=== PATIENT | male | born 1960 | race Hispanic/Latino ===

== ENCOUNTER 2017-10-03 00:02 | Inpatient (IN) | payer MEDICAID, OTHER ==
--- NOTE | 2017-10-03 00:28 | C.PDOC ---
History Of Present Illness 56 y/o M c no PMHx p/w chest pain x 2 hours. 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 Denies fever, cough, trauma, travel, leg swelling, nausea, vomiting. Time Seen by Provider: 10/03/17 00:25 Chief Complaint (Nursing): Chest Pain Past Medical History Vital Signs: Last Vital Signs Temp 98.5 F 10/03/17 00:13 Pulse 81 10/03/17 01:36 Resp 13 10/03/17 01:36 BP 107/69 10/03/17 01:36 Pulse Ox 97 10/03/17 01:36 - Medical History PMH: Gall Bladder Disease Surgical History: Cholecystectomy Family History: States: No Known Family Hx - Social History Hx Alcohol Use: No Hx Substance Use: No - Immunization History Hx Tetanus Toxoid Vaccination: Yes Hx Influenza Vaccination: Yes Hx Pneumococcal Vaccination: Yes Review Of Systems Except As Marked, All Systems Reviewed And Found Negative. Constitutional: Negative for: Fever Gastrointestinal: Negative for: Vomiting Physical Exam - Physical Exam Additional Physical Exam Comments: Gen: NAD Head: NC/AT Eyes: PERRL ENT: MMM Neck: Supple Chest: No tenderness CV: Borderline tachycardic Lungs: CTA b/l. Pulse oximetry 91% on room air Abd: Soft, NT Back: No CVA tenderness Extremities: No edema Skin: No rash. Diaphoretic. Neuro: Alert, no focal deficit ED Course And Treatment - Laboratory Results Result Diagrams: 10/03/17 00:29 10/03/17 00:29 O2 Sat by Pulse Oximetry: 92 Medical Decision Making Medical Decision Making: Differential includes MSK pain, PE, ACS. FINDINGS: Pulmonary arteries: Normal. No pulmonary emboli. Aorta: Normal. No aortic aneurysm. No aortic dissection. Lungs: Atelectasis or infiltrate in the bases. Paraseptal emphysema Pleural space: Normal. No pneumothorax. No pleural effusion. Heart: Coronary artery calcifications. Bones/joints: Unremarkable. No acute fracture. Soft tissues: Unremarkable. Lymph nodes: Unremarkable. No enlarged lymph nodes. Liver: Calcified granulomas in the liver. Gallbladder and bile ducts: Cholecystectomy. Kidneys and ureters: Low-density structures in the left kidney are not further characterized. Troponin negative at 0.04. Will trend. Antibiotics administered. Disposition - Disposition Disposition: HOSPITALIZED Disposition Time: 02:38 Condition: FAIR Forms: [employer] (Lao) - POA Core Measure Indicators: Pneumonia - Clinical Impression Clinical Impression: Chest pain, Pneumonia
[2017-10-03 00:34] LABS: BASO # 0.1 K/uL (0.0-0.2); BASO % 0.7 % (0.0-2.0); EOS # 0.1 K/uL (0.0-0.7); EOS % 1.1 % (0.0-4.0); LYMPH # 1.7 K/uL (1.0-4.3); LYMPH % 13.8 % (20.0-40.0); MEAN CELL VOLUME 90.3 fL (80.0-94.0); MEAN CORPUSCULAR HEMOGLOBIN 30.9 pg (27.0-31.0); MEAN CORPUSCULAR HGB CONC 34.3 g/dL (33.0-37.0); MEAN PLATELET VOLUME 8.6 fL (7.2-11.7); MONO # 0.7 K/uL (0.0-0.8); MONO % 5.7 % (0.0-10.0); NEUT # 9.6 K/uL (1.8-7.0); NEUT % 78.7 % (50.0-75.0); NRBC % 0.1 % (0.0-2.0); RBC 5.49 Mil/uL (4.40-5.90); RED CELL DISTRIBUTION WIDTH 13.7 % (11.5-14.5); WHITE BLOOD COUNT 12.2 K/uL (4.8-10.8)
[2017-10-03 00:41] LABS: INR 1.1; PROTHROMBIN TIME 11.9 SECONDS (9.7-12.2)
[2017-10-03 01:02] LABS: ALB/GLOB RATIO 1.4 (1.0-2.1); ALBUMIN 4.7 g/dL (3.5-5.0)
[2017-10-03] MEDS ORDERED: Sodium Chloride 0.9% 1,000 ML IV STA (01:13)
[2017-10-03] MEDS ORDERED: Iodixanol 320 MG/ML 100 ML BOTTLE IV ONE (01:13)
[2017-10-03] MEDS ORDERED: Sodium Chloride 0.9% 1,000 ML ONE (01:16)
[2017-10-03 01:27] LABS: B-TYPE NATRIURETIC PEPTIDE 66.6 pg/mL (0-900); CK-MB 1.24 ng/mL (0.0-3.38); TROPONIN I 0.044 ng/mL (0.00-0.120)
[2017-10-03] MEDS ORDERED: Azithromycin 500 MG in Sodium Chloride 0.9% 250 ML IVPB STA (02:55)
--- NOTE | 2017-10-03 08:13 | CP.PCM.HP ---
Past Patient History - Past Social History Smoking Status: Light Smoker < 10 Cigarettes Daily - MUSCULOSKELETAL/RHEUMATOLOGICAL Hx Falls: No - GASTROINTESTINAL Hx Gall Bladder Disease: Yes (GB SURGERY ) - PSYCHIATRIC Hx Substance Use: No - SURGICAL HISTORY Hx Cholecystectomy: Yes - ANESTHESIA Hx Anesthesia: Yes Hx Anesthesia Reactions: No Meds Allergies/Adverse Reactions: Allergies Allergy/AdvReac Type Severity Reaction Status Date / Time No Known Allergies Allergy Verified 10/03/17 00:17 Results - Vital Signs Recent Vital Signs: Last Vital Signs Temp 97.4 F L 10/03/17 07:15 Pulse 65 10/03/17 07:15 Resp 20 10/03/17 07:15 BP 111/56 L 10/03/17 07:15 Pulse Ox 97 10/03/17 07:15 - Labs Result Diagrams: 10/03/17 00:29 10/03/17 00:29 Labs: Laboratory Results - last 24 hr 10/03/17 10/03/17 10/03/17 00:25 00:29 00:29 WBC 12.2 H RBC 5.49 Hgb 17.0 Hct 49.6 MCV 90.3 MCH 30.9 MCHC 34.3 RDW 13.7 Plt Count 248 MPV 8.6 Neut % (Auto) 78.7 H Lymph % (Auto) 13.8 L [place] % (Auto) 5.7 Eos % (Auto) 1.1 Baso % (Auto) 0.7 Neut # (Auto) 9.6 H Lymph # (Auto) 1.7 [place] # (Auto) 0.7 Eos # (Auto) 0.1 Baso # (Auto) 0.1 PT 11.9 INR 1.1 APTT 33 D-Dimer, Quantitative Sodium 147 Potassium 3.6 Chloride 108 H Carbon Dioxide 23 Anion Gap 19 BUN 17 Creatinine 1.7 H Est GFR ( Amer) 50 Est GFR (Non-Af Amer) 42 Random Glucose 147 H Calcium 10.0 Total Bilirubin 0.8 AST 21 ALT 26 Alkaline Phosphatase 95 Total Creatine Kinase 118 CK-MB (Mass) 1.24 Troponin I 0.0440 NT-Pro-B Natriuret Pep 66.6 Total Protein 8.0 Albumin 4.7 Globulin 3.3 Albumin/Globulin Ratio 1.4 10/03/17 01:27 WBC RBC Hgb Hct MCV MCH MCHC RDW Plt Count MPV Neut % (Auto) Lymph % (Auto) [place] % (Auto) Eos % (Auto) Baso % (Auto) Neut # (Auto) Lymph # (Auto) [place] # (Auto) Eos # (Auto) Baso # (Auto) PT INR APTT D-Dimer, Quantitative < 200 Sodium Potassium Chloride Carbon Dioxide Anion Gap BUN Creatinine Est GFR ( Amer) Est GFR (Non-Af Amer) Random Glucose Calcium Total Bilirubin AST ALT Alkaline Phosphatase Total Creatine Kinase CK-MB (Mass) Troponin I NT-Pro-B Natriuret Pep Total Protein Albumin Globulin Albumin/Globulin Ratio Assessment & Plan - Assessment and Plan (Free Text) Plan: yohan [email or web address] cardio pulm rocephin zithromax asp as ordred
--- NOTE | 2017-10-03 08:52 | CP.PCM.CON ---
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 NO WHEEZE., STILL SMOKING. NO N/V. NO DIAPHORESIS. QUIT COCAINE YRS AGO. ON NO MEDS. Review of Systems - Review of Systems All systems: reviewed and no additional remarkable complaints except - Constitutional Constitutional: absent: Chills, Excessive Sweating - EENT Eyes: absent: Change in Vision Ears: absent: Dizziness Nose/Mouth/Throat: absent: Nasal Congestion - Cardiovascular Cardiovascular: Chest Pain. absent: Leg Edema - Respiratory Respiratory: Cough, Dyspnea. absent: Excessive Mucous Production - Gastrointestinal Gastrointestinal: Heartburn. absent: Nausea, Vomiting - Genitourinary Genitourinary: absent: Difficulty Urinating - Musculoskeletal Musculoskeletal: absent: Arthralgias - Integumentary Integumentary: absent: Rash - Neurological Neurological: absent: Confusion, Focal Weakness - Psychiatric Psychiatric: absent: Anxiety - Endocrine Endocrine: absent: Palpitations - Hematologic/Lymphatic Hematologic: absent: Easy Bruising Past Patient History - Infectious Disease Hx of Infectious Diseases: None - Past Medical History & Family History Past Medical History?: No Past Family History: Reviewed and not pertinent - Past Social History Smoking Status: Light Smoker < 10 Cigarettes Daily Chewing Tobacco Use: No Cigar Use: No Alcohol: None Drugs: Cocaine - CARDIAC Hx Cardiac Disorders: No - PULMONARY Hx Respiratory Disorders: No - NEUROLOGICAL Hx Neurological Disorder: No - HEENT Hx HEENT Problems: No - RENAL Hx Chronic Kidney Disease: No - ENDOCRINE/METABOLIC Hx Endocrine Disorders: No - HEMATOLOGICAL/ONCOLOGICAL Hx Blood Disorders: No - INTEGUMENTARY Hx Dermatological Problems: No - MUSCULOSKELETAL/RHEUMATOLOGICAL Hx Musculoskeletal Disorders: No Hx Falls: No - GASTROINTESTINAL Hx Gall Bladder Disease: Yes (GB SURGERY ) Hx Gastritis: Yes - GENITOURINARY/GYNECOLOGICAL Hx Genitourinary Disorders: No - PSYCHIATRIC Hx Psychophysiologic Disorder: No Hx Substance Use: No - SURGICAL HISTORY Hx Cholecystectomy: Yes - ANESTHESIA Hx Anesthesia: Yes Hx Anesthesia Reactions: No Meds Allergies/Adverse Reactions: Allergies Allergy/AdvReac Type Severity Reaction Status Date / Time No Known Allergies Allergy Verified 10/03/17 00:17 - Medications Medications: Current Medications Albuterol/Ipratropium (Duoneb 3 Mg/0.5 Mg (3 Ml) Ud) 3 ml INH RQ6 [facility] Aspirin (Aspirin) 325 mg PO DAILY [facility] Enoxaparin Sodium (Lovenox) 40 mg SC DAILY [facility] Ceftriaxone Sodium 1 gm/ (Sodium Chloride) 100 mls @ 100 mls/hr IVPB DAILY [facility] PRN Reason: Protocol Azithromycin 500 mg/ Sodium (Chloride) 250 mls @ 250 mls/hr IVPB DAILY [facility] PRN Reason: Protocol Ceftriaxone Sodium 1 gm/ (Sodium Chloride) 100 mls @ 100 mls/hr IVPB DAILY [facility] PRN Reason: Protocol Pantoprazole Sodium (Protonix Ec Tab) 40 mg PO DAILY [facility] Physical Exam - Constitutional Appears: No Acute Distress - Head Exam Head Exam: ATRAUMATIC, NORMOCEPHALIC - Eye Exam Eye Exam: EOMI, Normal appearance - ENT Exam ENT Exam: Mucous Membranes Moist - Respiratory Exam Respiratory Exam: Decreased Breath Sounds. absent: Accessory Muscle Use, Chest Wall Tenderness, Wheezes - Cardiovascular Exam Cardiovascular Exam: RRR, +S1, +S2 - GI/Abdominal Exam GI & Abdominal Exam: Soft. absent: Tenderness - Rectal Exam Rectal Exam: Deferred - Extremities Exam Extremities exam: Negative for: calf tenderness, pedal edema - Back Exam Back exam: absent: CVA tenderness (L), CVA tenderness (R) - Neurological Exam Neurological exam: Alert, CN II-XII Intact, Oriented x3 - Psychiatric Exam Psychiatric exam: Normal Mood Results - Vital Signs Recent Vital Signs: Last Vital Signs Temp 97.4 F L 10/03/17 07:15 Pulse 65 10/03/17 07:15 Resp 20 10/03/17 07:15 BP 111/56 L 10/03/17 07:15 Pulse Ox 97 10/03/17 07:15 - Labs Result Diagrams: 10/03/17 00:29 10/03/17 00:29 Labs: Laboratory Results - last 24 hr 10/03/17 10/03/17 10/03/17 00:25 00:29 00:29 WBC 12.2 H RBC 5.49 Hgb 17.0 Hct 49.6 MCV 90.3 MCH 30.9 MCHC 34.3 RDW 13.7 Plt Count 248 MPV 8.6 Neut % (Auto) 78.7 H Lymph % (Auto) 13.8 L [place] % (Auto) 5.7 Eos % (Auto) 1.1 Baso % (Auto) 0.7 Neut # (Auto) 9.6 H Lymph # (Auto) 1.7 [place] # (Auto) 0.7 Eos # (Auto) 0.1 Baso # (Auto) 0.1 PT 11.9 INR 1.1 APTT 33 D-Dimer, Quantitative Sodium 147 Potassium 3.6 Chloride 108 H Carbon Dioxide 23 Anion Gap 19 BUN 17 Creatinine 1.7 H Est GFR ( Amer) 50 Est GFR (Non-Af Amer) 42 Random Glucose 147 H Calcium 10.0 Total Bilirubin 0.8 AST 21 ALT 26 Alkaline Phosphatase 95 Total Creatine Kinase 118 CK-MB (Mass) 1.24 Troponin I 0.0440 NT-Pro-B Natriuret Pep 66.6 Total Protein 8.0 Albumin 4.7 Globulin 3.3 Albumin/Globulin Ratio 1.4 10/03/17 01:27 WBC RBC Hgb Hct MCV MCH MCHC RDW Plt Count MPV Neut % (Auto) Lymph % (Auto) [place] % (Auto) Eos % (Auto) Baso % (Auto) Neut # (Auto) Lymph # (Auto) [place] # (Auto) Eos # (Auto) Baso # (Auto) PT INR APTT D-Dimer, Quantitative < 200 Sodium Potassium Chloride Carbon Dioxide Anion Gap BUN Creatinine Est GFR ( Amer) Est GFR (Non-Af Amer) Random Glucose Calcium Total Bilirubin AST ALT Alkaline Phosphatase Total Creatine Kinase CK-MB (Mass) Troponin I NT-Pro-B Natriuret Pep Total Protein Albumin Globulin Albumin/Globulin Ratio Assessment & Plan (1) Acute kidney injury Status: Acute (2) Smoking Status: Acute (3) Chest pain Status: Acute (4) Pneumonia Status: Acute - Assessment and Plan (Free Text) Assessment: 56 YO MALE WITH A HX SMOKING, ADM WITH ?UNSTABLE ANGINA R/O ACS WITH DYSPNEA, ? COPD EXAC AND PNA. CONT EMPIRIC AB., NEB BD., PULM TOILET., MONITOR O2 SAT. CTA REVIEWED, NEG PE +BIBASILAR INFILT. MONITOR CARD ENZ, FOR ECHO. CARDIO EVAL. SMOKING CESSATION. GI/DVT PROPHYLAXIS. DISCUSSED WITH STAFF.
--- NOTE | 2017-10-03 09:14 | CT ---
Date of service: 10/03/2017 PROCEDURE: CT Chest with contrast (Pulmonary Angiogram) HISTORY: dyspnea, chest pain COMPARISON: None available. TECHNIQUE: Axial computed tomography images were obtained of the chest in the pulmonary arterial phase of enhancement. Coronal and sagittal reformatted images were created and reviewed. Radiation dose: Total exam DLP = 621 mGy-cm. This CT exam was performed using one or more of the following dose reduction techniques: Automated exposure control, adjustment of the mA and/or kV according to patient size, and/or use of iterative reconstruction technique. FINDINGS: PULMONARY ARTERIES: No evidence for central pulmonary embolism. More limited evaluation for segmental and subsegmental emboli given motion artifact and suboptimal contrast timing bolus. AORTA: No acute findings. No thoracic aortic aneurysm. LUNGS: Atelectasis and or infiltrate at the lung bases. Paraseptal emphysema. 3 millimeter subpleural nodular density along the fissure on series 4, image 62. PLEURAL SPACES: Unremarkable. No effusion or pneumothorax. HEART: Coronary calcifications. LYMPH NODES: 1.2 centimeter right hilar node. BONES, CHEST WALL: Unremarkable. No fracture or destructive lesion OTHER FINDINGS: Calcified granulomas and/or foci in the liver. Cholecystectomy. Low-attenuation lesion in the left kidney measuring 3.5 centimeters demonstrating a Hounsfield unit attenuation of 6 suggestive for a cyst. Additional smaller hypodensities, too small to adequately characterize. IMPRESSION: No evidence for central pulmonary embolism. More limited evaluation for segmental and subsegmental emboli given motion artifact and suboptimal contrast timing bolus. Atelectasis and or infiltrate at the lung bases. Paraseptal emphysema. 3 millimeter subpleural nodular density along the fissure on series 4, image 62. Clinical correlation. Three month interval followup may be helpful if clinically indicated. Additional findings as above. These findings were preliminarily reported at 2:37 a.m. on 10/03/[address] Jey Ly from [employer].
[2017-10-03] MEDS: Pantoprazole 40 mg EC Tab PO SCH (09:17)
[2017-10-03] MEDS: Enoxaparin 40 mg Syringe SC SCH (09:18)
[2017-10-03] MEDS: Azithromycin 500 MG in Sodium Chloride 0.9% 250 ML IVPB SCH (10:31)
[2017-10-03 13:24] LABS: CK-MB 1.59 ng/mL (0.0-3.38); TROPONIN I 0.083 ng/mL (0.00-0.120)
[2017-10-03 13:33] LABS: BARBITURATES, UR NEGATIVE (NEGATIVE); BENZODIAZEPINES, UR NEGATIVE (NEGATIVE); OPIATES, UR NEGATIVE (NEGATIVE); PHENCYCLIDINE, UR NEGATIVE (NEGATIVE)
--- NOTE | 2017-10-03 13:53 | CP.PCM.PN ---
Subjective - Date & Time of Evaluation Date of Evaluation: 10/03/17 Time of Evaluation: 07:00 - Subjective Subjective: PGY2- Progress Note for Dr. Braden Patient with no significant PMHx presented to the ER for midsternal and left sided chest pain which he rated 10/10. Pain lasted for about 30 minutes at that level and then decreased. Patient today says the pain is 5/10. Pain does not radiate. Patient does admit to some shortness of breath. Patient said he felt palpitations yesterday, but not today. Patient denies headache, abdominal pain, nausea, vomiting, constipation, or diarrhea. 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, denies any alcohol lives in intermediate for 1 month, homeless for years Objective - Vital Signs/Intake and Output Vital Signs (last 24 hours): Temp Pulse Resp BP Pulse Ox 97.4 F L 62 20 111/56 L 97 10/03/17 07:15 10/03/17 08:50 10/03/17 07:15 10/03/17 07:15 10/03/17 07:15 Intake and Output: 10/03/17 10/03/17 06:59 18:59 Intake Total 300 Output Total 300 Balance 0 - Medications Medications: Current Medications Albuterol/Ipratropium (Duoneb 3 Mg/0.5 Mg (3 Ml) Ud) 3 ml INH RQ6 [facility] Aspirin (Aspirin) 325 mg PO DAILY [facility] Last Admin: 10/03/17 09:17 Dose: 325 mg Enoxaparin Sodium (Lovenox) 40 mg SC DAILY [facility] Last Admin: 10/03/17 09:18 Dose: 40 mg Ceftriaxone Sodium 1 gm/ (Sodium Chloride) 100 mls @ 100 mls/hr IVPB DAILY [facility] PRN Reason: Protocol Last Admin: 10/03/17 09:17 Dose: 100 mls/hr Azithromycin 500 mg/ Sodium (Chloride) 250 mls @ 250 mls/hr IVPB DAILY [facility] PRN Reason: Protocol Last Admin: 10/03/17 10:31 Dose: 250 mls/hr Pantoprazole Sodium (Protonix Ec Tab) 40 mg PO DAILY [facility] Last Admin: 10/03/17 09:17 Dose: 40 mg - Labs Labs: 10/03/17 00:29 10/03/17 00:29 PT 11.9 SECONDS (9.7-12.2) 10/03/17 00:25 INR 1.1 10/03/17 00:25 APTT 33 SECONDS (21-34) 10/03/17 00:25 - Constitutional Appears: Non-toxic, No Acute Distress, Unkempt - Head Exam Head Exam: ATRAUMATIC, NORMAL INSPECTION, NORMOCEPHALIC - Eye Exam Eye Exam: EOMI, Normal appearance - ENT Exam ENT Exam: Mucous Membranes Moist - Respiratory Exam Respiratory Exam: Rales, NORMAL BREATHING PATTERN - Cardiovascular Exam Cardiovascular Exam: REGULAR RHYTHM, RRR, +S1, +S2 - GI/Abdominal Exam GI & Abdominal Exam: Soft, Normal Bowel Sounds. absent: Tenderness - Extremities Exam Extremities Exam: Normal Inspection. absent: Pedal Edema, Tenderness - Back Exam Back Exam: NORMAL INSPECTION - Neurological Exam Neurological Exam: Alert, Awake, Oriented x3 - Psychiatric Exam Psychiatric exam: Normal Affect, Normal Mood - Skin Skin Exam: Intact, Normal Color, Warm Assessment and Plan - Assessment and Plan (Free Text) Assessment: Chest Pain r/o ACS admit to tele Trop I .0440, .0830 f/u 3rd troponin EKG: no ST or T wave changes cardiology consult, Dr. Vázquez, help appreciated heart healthy diet CTA: no evidence of PE. more limited eval for segmental and subsegmental emboli given motion artifact and suboptimal contrast timing bolus. Atelectasis and or infiltrate at the lung bases. Paraseptal emphysema. 3mm subpleural nodular density along the fissure. Clinical correlation. Three month interval followup may be helpful if clinically indicated. Pneumonia as seen on CT pulm consulted, Dr. Roberts, help appreciated WBC: 12.2 Meds: Azithromycin 500mg ivpb daily Ceftriaxone 1 gm ivpb daily Duonebs 3ml INH q6h Lung Nodule as seen on CT will need follow up CT as an outpatient pulm consulted, Dr. Roberts, help appreciated Prophylaxis Protonix 40mg po daily Lovenox 40mg sc daily, SCDs Discussed with Dr. Braden
--- NOTE | 2017-10-03 19:23 | CP.PCM.PN ---
Subjective - Date & Time of Evaluation Date of Evaluation: 10/03/17 Time of Evaluation: 11:00 - Subjective Subjective: clinically same Objective - Vital Signs/Intake and Output Vital Signs (last 24 hours): Temp Pulse Resp BP Pulse Ox 97.7 F 58 L 20 96/61 L 94 L 10/03/17 15:00 10/03/17 15:59 10/03/17 15:00 10/03/17 15:00 10/03/17 15:00 Intake and Output: 10/03/17 10/04/17 18:59 06:59 Intake Total 300 Output Total 300 Balance 0 - Medications Medications: Current Medications Albuterol/Ipratropium (Duoneb 3 Mg/0.5 Mg (3 Ml) Ud) 3 ml INH RQ6 [facility] Aspirin (Aspirin) 325 mg PO DAILY [facility] Last Admin: 10/03/17 09:17 Dose: 325 mg Enoxaparin Sodium (Lovenox) 40 mg SC DAILY [facility] Last Admin: 10/03/17 09:18 Dose: 40 mg Ceftriaxone Sodium 1 gm/ (Sodium Chloride) 100 mls @ 100 mls/hr IVPB DAILY [facility] PRN Reason: Protocol Last Admin: 10/03/17 09:17 Dose: 100 mls/hr Azithromycin 500 mg/ Sodium (Chloride) 250 mls @ 250 mls/hr IVPB DAILY [facility] PRN Reason: Protocol Last Admin: 10/03/17 10:31 Dose: 250 mls/hr Pantoprazole Sodium (Protonix Ec Tab) 40 mg PO DAILY [facility] Last Admin: 10/03/17 09:17 Dose: 40 mg - Labs Labs: 10/03/17 00:29 10/03/17 00:29 PT 11.9 SECONDS (9.7-12.2) 10/03/17 00:25 INR 1.1 10/03/17 00:25 APTT 33 SECONDS (21-34) 10/03/17 00:25 - Constitutional Appears: Well - Head Exam Head Exam: ATRAUMATIC, NORMAL INSPECTION, NORMOCEPHALIC - Eye Exam Eye Exam: EOMI, Normal appearance, PERRL Pupil Exam: NORMAL ACCOMODATION, PERRL - ENT Exam ENT Exam: Mucous Membranes Moist, Normal Exam - Neck Exam Neck Exam: Full ROM, Normal Inspection. absent: Lymphadenopathy - Respiratory Exam Respiratory Exam: Decreased Breath Sounds - Cardiovascular Exam Cardiovascular Exam: REGULAR RHYTHM, +S1, +S2 - GI/Abdominal Exam GI & Abdominal Exam: Soft, Diminished Bowel Sounds - Rectal Exam Rectal Exam: Deferred
[2017-10-03] MEDS: Albuterol-Ipratrop 3 mg / 0.5 (3 ml) UD INH SCH (20:37)
[2017-10-03 21:07] LABS: CK-MB 1.38 ng/mL (0.0-3.38); TROPONIN I 0.036 ng/mL (0.00-0.120)
[2017-10-04] MEDS: Albuterol-Ipratrop 3 mg / 0.5 (3 ml) UD INH SCH ×4 (03:04→20:30)
[2017-10-04 07:39] LABS: ALB/GLOB RATIO 1.4 (1.0-2.1); ALBUMIN 3.5 g/dL (3.5-5.0); ALT/SGPT 21 U/L (21-72); AST/SGOT 15 U/L (17-59); BASO % 0.6 % (0.0-2.0); BLOOD UREA NITROGEN 16 mg/dL (9-20); CALCIUM 8.3 mg/dl (8.6-10.4); EOS # 0.2 K/uL (0.0-0.7); EOS % 3.1 % (0.0-4.0); GFR AFRICAN-AMERICAN > 60; GFR NON-AFRICAN AMERICAN > 60; LYMPH # 2.5 K/uL (1.0-4.3); LYMPH % 37.3 % (20.0-40.0); MEAN CELL VOLUME 90.6 fL (80.0-94.0); MEAN CORPUSCULAR HEMOGLOBIN 30.7 pg (27.0-31.0); MEAN CORPUSCULAR HGB CONC 33.9 g/dL (33.0-37.0); MEAN PLATELET VOLUME 8.5 fL (7.2-11.7); MONO # 0.5 K/uL (0.0-0.8); MONO % 7.5 % (0.0-10.0); NEUT # 3.4 K/uL (1.8-7.0); NEUT % 51.5 % (50.0-75.0); NRBC % 0.1 % (0.0-2.0); RBC 4.69 Mil/uL (4.40-5.90); RED CELL DISTRIBUTION WIDTH 13.6 % (11.5-14.5); WHITE BLOOD COUNT 6.7 K/uL (4.8-10.8)
[2017-10-04 07:41] LABS: HEMOGLOBIN 14.4 g/dL (12.0-18.0)
[2017-10-04] MEDS: Enoxaparin 40 mg Syringe SC SCH (09:24)
[2017-10-04] MEDS: Pantoprazole 40 mg EC Tab PO SCH (09:24)
--- NOTE | 2017-10-04 10:07 | CP.PCM.PN ---
Subjective - Date & Time of Evaluation Date of Evaluation: 10/04/17 Time of Evaluation: 10:05 - Subjective Subjective: PT ALERT, +COUGH, +YELLOW SPUTUM., STILL INTERMITTENT ANT. CP AT REST. ROS; OTHERWISE NEG. Objective - Vital Signs/Intake and Output Vital Signs (last 24 hours): Temp Pulse Resp BP Pulse Ox 97.7 F 55 L 18 115/73 100 10/04/17 07:20 10/04/17 07:20 10/04/17 07:20 10/04/17 07:20 10/04/17 07:20 Intake and Output: 10/04/17 10/04/17 06:59 18:59 Intake Total 200 Output Total 220 Balance -20 - Medications Medications: Current Medications Albuterol/Ipratropium (Duoneb 3 Mg/0.5 Mg (3 Ml) Ud) 3 ml INH RQ6 [facility] Last Admin: 10/04/17 07:35 Dose: 3 ml Aspirin (Aspirin) 325 mg PO DAILY [facility] Last Admin: 10/04/17 09:24 Dose: 325 mg Enoxaparin Sodium (Lovenox) 40 mg SC DAILY [facility] Last Admin: 10/04/17 09:24 Dose: 40 mg Ceftriaxone Sodium 1 gm/ (Sodium Chloride) 100 mls @ 100 mls/hr IVPB DAILY [facility] PRN Reason: Protocol Last Admin: 10/04/17 09:23 Dose: 100 mls/hr Azithromycin 500 mg/ Sodium (Chloride) 250 mls @ 250 mls/hr IVPB DAILY [facility] PRN Reason: Protocol Last Admin: 10/03/17 10:31 Dose: 250 mls/hr Pantoprazole Sodium (Protonix Ec Tab) 40 mg PO DAILY [facility] Last Admin: 10/04/17 09:24 Dose: 40 mg - Labs Labs: 10/04/17 07:18 10/04/17 07:18 PT 11.9 SECONDS (9.7-12.2) 10/03/17 00:25 INR 1.1 10/03/17 00:25 APTT 33 SECONDS (21-34) 10/03/17 00:25 - Constitutional Appears: Non-toxic, No Acute Distress - Head Exam Head Exam: ATRAUMATIC, NORMOCEPHALIC - Eye Exam Eye Exam: EOMI, Normal appearance - ENT Exam ENT Exam: Mucous Membranes Moist - Neck Exam Neck Exam: Normal Inspection - Respiratory Exam Respiratory Exam: Decreased Breath Sounds. absent: Accessory Muscle Use, Wheezes, Respiratory Distress - Cardiovascular Exam Cardiovascular Exam: RRR, +S1, +S2 - GI/Abdominal Exam GI & Abdominal Exam: Soft. absent: Tenderness - Rectal Exam Rectal Exam: Deferred - Extremities Exam Extremities Exam: absent: Calf Tenderness, Pedal Edema - Back Exam Back Exam: absent: CVA tenderness (L), CVA tenderness (R) - Neurological Exam Neurological Exam: Alert, Awake, CN II-XII Intact, Oriented x3 - Psychiatric Exam Psychiatric exam: Normal Mood - Skin Skin Exam: absent: Rash Assessment and Plan (1) Acute kidney injury Status: Acute (2) Smoking Status: Acute (3) Chest pain Status: Acute (4) Pneumonia Status: Acute - Assessment and Plan (Free Text) Assessment: RESP STATUS NO SIG CHANGE. CONT EMPIRIC AB., CONT NEB BD., MONITOR O2 SAT. [address] CHEST REVIEWED., CARDIO W/U IN PROGRESS. INCREASE OOB. DISCUSSED WITH STAFF.
[2017-10-04] MEDS: Azithromycin 500 MG in Sodium Chloride 0.9% 250 ML IVPB SCH (10:33)
[2017-10-04 12:31] LABS: CK-MB 0.94 ng/mL (0.0-3.38)
--- NOTE | 2017-10-04 19:25 | CP.PCM.PN ---
Subjective - Date & Time of Evaluation Date of Evaluation: 10/04/17 Time of Evaluation: 19:25 - Subjective Subjective: PGY2- Progress Note for Dr. Braden Patient seen and examined at bedside today. Per nursing, no acute events occurred overnight. Patient reports feeling better upon examination. Patient no longer reports chest pain .Patient denies any shortness of breath, headache, dizziness, changes in vision, syncopal episodes, or any other complaints. Objective - Vital Signs/Intake and Output Vital Signs (last 24 hours): Temp Pulse Resp BP Pulse Ox 97.9 F 58 L 20 112/73 96 10/04/17 15:29 10/04/17 16:15 10/04/17 15:29 10/04/17 15:29 10/04/17 15:29 Intake and Output: 10/04/17 10/05/17 18:59 06:59 Intake Total 200 Output Total 220 Balance -20 - Medications Medications: Current Medications Albuterol/Ipratropium (Duoneb 3 Mg/0.5 Mg (3 Ml) Ud) 3 ml INH RQ6 [facility] Last Admin: 10/04/17 13:38 Dose: 3 ml Aspirin (Aspirin) 325 mg PO DAILY [facility] Last Admin: 10/04/17 09:24 Dose: 325 mg Enoxaparin Sodium (Lovenox) 40 mg SC DAILY [facility] Last Admin: 10/04/17 09:24 Dose: 40 mg Ceftriaxone Sodium 1 gm/ (Sodium Chloride) 100 mls @ 100 mls/hr IVPB DAILY [facility] PRN Reason: Protocol Last Admin: 10/04/17 09:23 Dose: 100 mls/hr Azithromycin 500 mg/ Sodium (Chloride) 250 mls @ 250 mls/hr IVPB DAILY [facility] PRN Reason: Protocol Last Admin: 10/04/17 10:33 Dose: 250 mls/hr Pantoprazole Sodium (Protonix Ec Tab) 40 mg PO DAILY [facility] Last Admin: 10/04/17 09:24 Dose: 40 mg - Labs Labs: 10/04/17 07:18 10/04/17 07:18 PT 11.9 SECONDS (9.7-12.2) 10/03/17 00:25 INR 1.1 10/03/17 00:25 APTT 33 SECONDS (21-34) 10/03/17 00:25 - Head Exam Head Exam: ATRAUMATIC, NORMAL INSPECTION, NORMOCEPHALIC - Eye Exam Eye Exam: EOMI, Normal appearance, PERRL. absent: Periorbital tenderness Pupil Exam: NORMAL ACCOMODATION, PERRL - ENT Exam ENT Exam: Mucous Membranes Moist, Normal Oropharynx - Respiratory Exam Respiratory Exam: Clear to Ausculation Bilateral, NORMAL BREATHING PATTERN. absent: Prolonged Expiratory Phase, Respiratory Distress - Cardiovascular Exam Cardiovascular Exam: REGULAR RHYTHM, +S1, +S2 - GI/Abdominal Exam GI & Abdominal Exam: Soft, Normal Bowel Sounds. absent: Hyperactive Bowel Sounds - Extremities Exam Extremities Exam: Full ROM, Normal Inspection. absent: Pedal Edema - Back Exam Back Exam: NORMAL INSPECTION. absent: CVA tenderness (R), paraspinal tenderness - Neurological Exam Neurological Exam: Alert, Awake - Psychiatric Exam Psychiatric exam: Normal Affect, Normal Mood - Skin Skin Exam: Dry, Intact Assessment and Plan - Assessment and Plan (Free Text) Plan: r/o ACS admit to tele Trop I .0440, .0830, .03 f/u 3rd troponin EKG: no ST or T wave changes UDS: negative cardiology consult, Dr. Vázquez, help appreciated heart healthy diet Echocardiogram taken. Will f/u with final read. CTA: no evidence of PE. more limited eval for segmental and subsegmental emboli given motion artifact and suboptimal contrast timing bolus. Atelectasis and or infiltrate at the lung bases. Paraseptal emphysema. 3mm subpleural nodular density along the fissure. Clinical correlation. Three month interval followup may be helpful if clinically indicated. Meds: Aspirin 325mg PO Daily Pneumonia as seen on CT pulm consulted, Dr. Roberts, help appreciated :RESP STATUS NO SIG CHANGE. CONT EMPIRIC AB., CONT NEB BD., MONITOR O2 SAT. CT CHEST REVIEWED., CARDIO W/U IN PROGRESS. INCREASE : OOB. DISCUSSED WITH STAFF. WBC: 12.2 upon admission Blood cultures x24 hrs (Preliminary) Meds: Azithromycin 500mg ivpb daily Ceftriaxone 1 gm ivpb daily Duonebs 3ml INH q6h Lung Nodule as seen on CT will need follow up CT as an outpatient pulm consulted, Dr. Roberts, help appreciated Prophylaxis Protonix 40mg po daily Lovenox 40mg sc daily, SCDs Discussed with Dr. Braden
--- NOTE | 2017-10-04 20:41 | CP.PCM.PN ---
Subjective - Date & Time of Evaluation Date of Evaluation: 10/04/17 Time of Evaluation: 11:40 - Subjective Subjective: clinically same Objective - Vital Signs/Intake and Output Vital Signs (last 24 hours): Temp Pulse Resp BP Pulse Ox 97.9 F 58 L 20 112/73 96 10/04/17 15:29 10/04/17 16:15 10/04/17 15:29 10/04/17 15:29 10/04/17 15:29 Intake and Output: 10/04/17 10/05/17 18:59 06:59 Intake Total 200 Output Total 220 Balance -20 - Medications Medications: Current Medications Albuterol/Ipratropium (Duoneb 3 Mg/0.5 Mg (3 Ml) Ud) 3 ml INH RQ6 [facility] Last Admin: 10/04/17 20:30 Dose: 3 ml Aspirin (Aspirin) 325 mg PO DAILY [facility] Last Admin: 10/04/17 09:24 Dose: 325 mg Enoxaparin Sodium (Lovenox) 40 mg SC DAILY [facility] Last Admin: 10/04/17 09:24 Dose: 40 mg Ceftriaxone Sodium 1 gm/ (Sodium Chloride) 100 mls @ 100 mls/hr IVPB DAILY [facility] PRN Reason: Protocol Last Admin: 10/04/17 09:23 Dose: 100 mls/hr Azithromycin 500 mg/ Sodium (Chloride) 250 mls @ 250 mls/hr IVPB DAILY [facility] PRN Reason: Protocol Last Admin: 10/04/17 10:33 Dose: 250 mls/hr Pantoprazole Sodium (Protonix Ec Tab) 40 mg PO DAILY [facility] Last Admin: 10/04/17 09:24 Dose: 40 mg - Labs Labs: 10/04/17 07:18 10/04/17 07:18 PT 11.9 SECONDS (9.7-12.2) 10/03/17 00:25 INR 1.1 10/03/17 00:25 APTT 33 SECONDS (21-34) 10/03/17 00:25 - Constitutional Appears: Well - Head Exam Head Exam: ATRAUMATIC, NORMAL INSPECTION, NORMOCEPHALIC - Eye Exam Eye Exam: EOMI, Normal appearance, PERRL Pupil Exam: NORMAL ACCOMODATION, PERRL - ENT Exam ENT Exam: Mucous Membranes Moist, Normal Exam - Neck Exam Neck Exam: Full ROM, Normal Inspection. absent: Lymphadenopathy - Respiratory Exam Respiratory Exam: Decreased Breath Sounds - Cardiovascular Exam Cardiovascular Exam: REGULAR RHYTHM, +S1, +S2 - GI/Abdominal Exam GI & Abdominal Exam: Soft, Diminished Bowel Sounds - Rectal Exam Rectal Exam: Deferred
--- NOTE | 2017-10-05 00:55 | CARD ---
APPROVED REPORT Date of service: 10/04/2017 EXAM: Two-dimensional and M-mode echocardiogram with Doppler and color Doppler. INDICATION Chest Pain Pneumonia 2D DIMENSIONS IVSd1.0 (0.7-1.1cm)LVDd3.8 (3.9-5.9cm) PWd0.9 (0.7-1.1cm)LVDs2.8 (2.5-4.0cm) FS (%) 28.1 %LVEF (%)55.0 (>50%) M-Mode DIMENSIONS Left Atrium (MM)3.72 (2.5-4.0cm)IVSd1.02 (0.7-1.1cm) Aortic Root3.51 (2.2-3.7cm)LVDd4.51 (4.0-5.6cm) Aortic Cusp Exc.2.44 (1.5-2.0cm)PWd0.95 (0.7-1.1cm) FS (%) 34 %LVDs2.97 (2.0-3.8cm) LVEF (%)63 (>50%) Mitral Valve MV E Blrxbicn36.3cm/sMV A Qcjhqazm91.3cm/sE/A ratio1.0 TDI E/Lateral E'0.0E/Medial E'0.0 LEFT VENTRICLE The left ventricle is normal size. There is normal left ventricular wall thickness. Left ventricle systolic function is normal. The Ejection Fraction is >55%. There is normal LV segmental wall motion. The left ventricular diastolic function is normal. RIGHT VENTRICLE The right ventricle is normal size. There is normal right ventricular wall thickness. The right ventricular systolic function is normal. ATRIA The left atrium size is normal. The right atrium size is normal. The interatrial septum is intact with no evidence for an atrial septal defect. AORTIC VALVE The aortic valve is normal in structure. No aortic regurgitation is present. There is no aortic valvular stenosis. There is no aortic valvular vegetation. MITRAL VALVE The mitral valve is normal in structure. There is no evidence of mitral valve prolapse. There is no mitral valve stenosis. Mitral regurgitation is trace. TRICUSPID VALVE The tricuspid valve is normal in structure. There is no tricuspid valve regurgitation noted. There is no tricuspid valve prolapse or vegetation. There is no tricuspid valve stenosis. PULMONIC VALVE The pulmonic valve is not well visualized. There is no pulmonic valvular regurgitation. There is no pulmonic valvular stenosis. GREAT VESSELS The aortic root is normal in size. PERICARDIAL EFFUSION There is no significant pericardial effusion. <Conclusion> Left ventricle systolic function is normal. The Ejection Fraction is >55%. No aortic regurgitation is present. Mitral regurgitation is trace. There is no tricuspid valve regurgitation noted. There is no pulmonic valvular regurgitation.
[2017-10-05] MEDS: Albuterol-Ipratrop 3 mg / 0.5 (3 ml) UD INH SCH ×4 (01:15→19:38)
[2017-10-05 08:01] LABS: BASO % 0.4 % (0.0-2.0); EOS # 0.2 K/uL (0.0-0.7); EOS % 2.7 % (0.0-4.0); HEMOGLOBIN 14.9 g/dL (12.0-18.0); LYMPH # 2.1 K/uL (1.0-4.3); MEAN CELL VOLUME 90.8 fL (80.0-94.0); MEAN CORPUSCULAR HEMOGLOBIN 31.5 pg (27.0-31.0); MEAN CORPUSCULAR HGB CONC 34.7 g/dL (33.0-37.0); MEAN PLATELET VOLUME 8.6 fL (7.2-11.7); MONO # 0.5 K/uL (0.0-0.8); MONO % 7.5 % (0.0-10.0); NEUT # 3.9 K/uL (1.8-7.0); NEUT % 58.4 % (50.0-75.0); NRBC % 0.1 % (0.0-2.0); RBC 4.72 Mil/uL (4.40-5.90); RED CELL DISTRIBUTION WIDTH 13.4 % (11.5-14.5); WHITE BLOOD COUNT 6.7 K/uL (4.8-10.8)
[2017-10-05 08:24] LABS: ALB/GLOB RATIO 1.3 (1.0-2.1); ALBUMIN 3.7 g/dL (3.5-5.0); ALT/SGPT 23 U/L (21-72); AST/SGOT 19 U/L (17-59); BLOOD UREA NITROGEN 16 mg/dL (9-20); CALCIUM 8.7 mg/dl (8.6-10.4); GFR AFRICAN-AMERICAN > 60; GFR NON-AFRICAN AMERICAN 57
[2017-10-05] MEDS: Enoxaparin 40 mg Syringe SC SCH (09:20)
[2017-10-05] MEDS: Pantoprazole 40 mg EC Tab PO SCH (09:20)
--- NOTE | 2017-10-05 09:47 | CP.PCM.PN ---
Subjective - Date & Time of Evaluation Date of Evaluation: 10/05/17 Time of Evaluation: 07:00 - Subjective Subjective: PGY2- Progress Note for Dr. Braden Patient seen and examined at bedside. Patient says he still has mild left sided chest pain. Patient denies any shortness of breath, headache, dizziness, changes in vision, syncopal episodes, or any other complaints. Objective - Vital Signs/Intake and Output Vital Signs (last 24 hours): Temp Pulse Resp BP Pulse Ox 97.6 F 59 L 20 113/71 98 10/05/17 07:20 10/05/17 07:55 10/05/17 07:20 10/05/17 07:20 10/05/17 07:20 - Medications Medications: Current Medications Albuterol/Ipratropium (Duoneb 3 Mg/0.5 Mg (3 Ml) Ud) 3 ml INH RQ6 [facility] Last Admin: 10/05/17 07:29 Dose: 3 ml Aspirin (Aspirin) 325 mg PO DAILY [facility] Last Admin: 10/05/17 09:20 Dose: 325 mg Enoxaparin Sodium (Lovenox) 40 mg SC DAILY [facility] Last Admin: 10/05/17 09:20 Dose: 40 mg Ceftriaxone Sodium 1 gm/ (Sodium Chloride) 100 mls @ 100 mls/hr IVPB DAILY [facility] PRN Reason: Protocol Last Admin: 10/05/17 09:20 Dose: 100 mls/hr Azithromycin 500 mg/ Sodium (Chloride) 250 mls @ 250 mls/hr IVPB DAILY [facility] PRN Reason: Protocol Last Admin: 10/04/17 10:33 Dose: 250 mls/hr Pantoprazole Sodium (Protonix Ec Tab) 40 mg PO DAILY [facility] Last Admin: 10/05/17 09:20 Dose: 40 mg - Labs Labs: 10/05/17 07:41 10/05/17 07:41 PT 11.9 SECONDS (9.7-12.2) 10/03/17 00:25 INR 1.1 10/03/17 00:25 APTT 33 SECONDS (21-34) 10/03/17 00:25 - Additional Findings Additional findings: - Head Exam Head Exam: ATRAUMATIC, NORMAL INSPECTION, NORMOCEPHALIC - Eye Exam Eye Exam: EOMI, Normal appearance, PERRL. absent: Periorbital tenderness Pupil Exam: NORMAL ACCOMODATION, PERRL - ENT Exam ENT Exam: Mucous Membranes Moist, Normal Oropharynx - Respiratory Exam Respiratory Exam: Clear to Ausculation Bilateral, NORMAL BREATHING PATTERN. absent: Prolonged Expiratory Phase, Respiratory Distress - Cardiovascular Exam Cardiovascular Exam: REGULAR RHYTHM, +S1, +S2 - GI/Abdominal Exam GI & Abdominal Exam: Soft, Normal Bowel Sounds. absent: Hyperactive Bowel Sounds - Extremities Exam Extremities Exam: Full ROM, Normal Inspection. absent: Pedal Edema - Back Exam Back Exam: NORMAL INSPECTION. absent: CVA tenderness (R), paraspinal tenderness - Neurological Exam Neurological Exam: Alert, Awake - Psychiatric Exam Psychiatric exam: Normal Affect, Normal Mood - Skin Skin Exam: Dry, Intact Assessment and Plan - Assessment and Plan (Free Text) Assessment: r/o ACS admit to tele Trop I .0440, .0830, .03 EKG: no ST or T wave changes UDS: negative cardiology consult, Dr. Vázquez, help appreciated heart healthy diet Echo: LVEF is 55%, no aortic regurg, mitral regurg is trace, no tricuspid valve regurg, no pulmonic valve regurg CTA: no evidence of PE. more limited eval for segmental and subsegmental emboli given motion artifact and suboptimal contrast timing bolus. Atelectasis and or infiltrate at the lung bases. Paraseptal emphysema. 3mm subpleural nodular density along the fissure. Clinical correlation. Three month interval followup may be helpful if clinically indicated. Meds: Aspirin 325mg PO Daily Pneumonia as seen on CT pulm consulted, Dr. Roberts, help appreciated :RESP STATUS NO SIG CHANGE. CONT EMPIRIC AB., CONT NEB BD., MONITOR O2 SAT. CT CHEST REVIEWED., CARDIO W/U IN PROGRESS. INCREASE : OOB. DISCUSSED WITH STAFF. WBC: 12.2 upon admission Blood cultures x24 hrs (Preliminary) Meds: Azithromycin 500mg ivpb daily Ceftriaxone 1 gm ivpb daily Duonebs 3ml INH q6h Lung Nodule as seen on CT will need follow up CT as an outpatient pulm consulted, Dr. Roberts, help appreciated Prophylaxis Protonix 40mg po daily Lovenox 40mg sc daily, SCDs Discussed with Dr. Braden
--- NOTE | 2017-10-05 09:55 | CP.PCM.PN ---
Subjective - Date & Time of Evaluation Date of Evaluation: 10/05/17 Time of Evaluation: 09:52 - Subjective Subjective: PT FEELS BETTER., LESS COUGH, LESS CP., AMBULATED, NO SOB. ROS; OTHERWISE NEG. Objective - Vital Signs/Intake and Output Vital Signs (last 24 hours): Temp Pulse Resp BP Pulse Ox 97.6 F 59 L 20 113/71 98 10/05/17 07:20 10/05/17 07:55 10/05/17 07:20 10/05/17 07:20 10/05/17 07:20 - Medications Medications: Current Medications Albuterol/Ipratropium (Duoneb 3 Mg/0.5 Mg (3 Ml) Ud) 3 ml INH RQ6 [facility] Last Admin: 10/05/17 07:29 Dose: 3 ml Aspirin (Aspirin) 325 mg PO DAILY [facility] Last Admin: 10/05/17 09:20 Dose: 325 mg Enoxaparin Sodium (Lovenox) 40 mg SC DAILY [facility] Last Admin: 10/05/17 09:20 Dose: 40 mg Ceftriaxone Sodium 1 gm/ (Sodium Chloride) 100 mls @ 100 mls/hr IVPB DAILY [facility] PRN Reason: Protocol Last Admin: 10/05/17 09:20 Dose: 100 mls/hr Azithromycin 500 mg/ Sodium (Chloride) 250 mls @ 250 mls/hr IVPB DAILY [facility] PRN Reason: Protocol Last Admin: 10/04/17 10:33 Dose: 250 mls/hr Pantoprazole Sodium (Protonix Ec Tab) 40 mg PO DAILY [facility] Last Admin: 10/05/17 09:20 Dose: 40 mg - Labs Labs: 10/05/17 07:41 10/05/17 07:41 PT 11.9 SECONDS (9.7-12.2) 10/03/17 00:25 INR 1.1 10/03/17 00:25 APTT 33 SECONDS (21-34) 10/03/17 00:25 - Constitutional Appears: Non-toxic, No Acute Distress - Head Exam Head Exam: ATRAUMATIC, NORMOCEPHALIC - Eye Exam Eye Exam: EOMI, Normal appearance - ENT Exam ENT Exam: Mucous Membranes Moist - Respiratory Exam Respiratory Exam: Decreased Breath Sounds. absent: Wheezes, Respiratory Distress - Cardiovascular Exam Cardiovascular Exam: RRR, +S1, +S2 - GI/Abdominal Exam GI & Abdominal Exam: Soft. absent: Tenderness - Rectal Exam Rectal Exam: Deferred - Extremities Exam Extremities Exam: absent: Calf Tenderness, Pedal Edema - Neurological Exam Neurological Exam: Alert, Awake, CN II-XII Intact, Oriented x3 - Psychiatric Exam Psychiatric exam: Normal Mood - Skin Skin Exam: absent: Rash Assessment and Plan (1) Acute kidney injury Status: Acute (2) Smoking Status: Acute (3) Chest pain Status: Acute (4) Pneumonia Status: Acute - Assessment and Plan (Free Text) Assessment: RESP STATUS IMPROVING., CONT PULM TOILET WITH NEB BD., AFEBRILE ON AB., INCREASE OOB. PFT'S OUPT. CXR RVIEWED. DISCUSSED WITH STAFF.
[2017-10-05] MEDS: Azithromycin 500 MG in Sodium Chloride 0.9% 250 ML IVPB SCH (10:37)
--- NOTE | 2017-10-05 12:38 | CP.PCM.PN ---
Subjective - Date & Time of Evaluation Date of Evaluation: 10/05/17 Time of Evaluation: 12:00 - Subjective Subjective: clinically same Objective - Vital Signs/Intake and Output Vital Signs (last 24 hours): Temp Pulse Resp BP Pulse Ox 97.6 F 59 L 20 113/71 98 10/05/17 07:20 10/05/17 07:55 10/05/17 07:20 10/05/17 07:20 10/05/17 07:20 - Medications Medications: Current Medications Albuterol/Ipratropium (Duoneb 3 Mg/0.5 Mg (3 Ml) Ud) 3 ml INH RQ6 [facility] Last Admin: 10/05/17 07:29 Dose: 3 ml Aspirin (Aspirin) 325 mg PO DAILY [facility] Last Admin: 10/05/17 09:20 Dose: 325 mg Enoxaparin Sodium (Lovenox) 40 mg SC DAILY [facility] Last Admin: 10/05/17 09:20 Dose: 40 mg Ceftriaxone Sodium 1 gm/ (Sodium Chloride) 100 mls @ 100 mls/hr IVPB DAILY [facility] PRN Reason: Protocol Last Admin: 10/05/17 09:20 Dose: 100 mls/hr Azithromycin 500 mg/ Sodium (Chloride) 250 mls @ 250 mls/hr IVPB DAILY [facility] PRN Reason: Protocol Last Admin: 10/05/17 10:37 Dose: 250 mls/hr Pantoprazole Sodium (Protonix Ec Tab) 40 mg PO DAILY [facility] Last Admin: 10/05/17 09:20 Dose: 40 mg - Labs Labs: 10/05/17 07:41 10/05/17 07:41 PT 11.9 SECONDS (9.7-12.2) 10/03/17 00:25 INR 1.1 10/03/17 00:25 APTT 33 SECONDS (21-34) 10/03/17 00:25
[2017-10-06] MEDS: Albuterol-Ipratrop 3 mg / 0.5 (3 ml) UD INH SCH ×3 (01:19→14:04)
[2017-10-06 06:36] LABS: BASO % 0.5 % (0.0-2.0); EOS # 0.2 K/uL (0.0-0.7); EOS % 2.8 % (0.0-4.0); HEMOGLOBIN 14.9 g/dL (12.0-18.0); LYMPH # 2.2 K/uL (1.0-4.3); LYMPH % 27.9 % (20.0-40.0); MEAN CELL VOLUME 90.2 fL (80.0-94.0); MEAN CORPUSCULAR HEMOGLOBIN 31.2 pg (27.0-31.0); MEAN CORPUSCULAR HGB CONC 34.6 g/dL (33.0-37.0); MEAN PLATELET VOLUME 8.6 fL (7.2-11.7); MONO # 0.5 K/uL (0.0-0.8); MONO % 6.1 % (0.0-10.0); NEUT # 4.9 K/uL (1.8-7.0); NEUT % 62.7 % (50.0-75.0); NRBC % 0.1 % (0.0-2.0); RBC 4.77 Mil/uL (4.40-5.90); RED CELL DISTRIBUTION WIDTH 13.8 % (11.5-14.5); WHITE BLOOD COUNT 7.8 K/uL (4.8-10.8)
[2017-10-06 07:10] LABS: ALB/GLOB RATIO 1.5 (1.0-2.1); ALBUMIN 3.8 g/dL (3.5-5.0); ALT/SGPT 19 U/L (21-72); AST/SGOT 19 U/L (17-59); BLOOD UREA NITROGEN 13 mg/dL (9-20); CALCIUM 8.5 mg/dl (8.6-10.4); GFR AFRICAN-AMERICAN > 60; GFR NON-AFRICAN AMERICAN > 60
[2017-10-06] MEDS: Enoxaparin 40 mg Syringe SC SCH (09:40)
[2017-10-06] MEDS: Pantoprazole 40 mg EC Tab PO SCH (09:40)
--- NOTE | 2017-10-06 10:09 | CP.PCM.CON ---
History of Present Illness - History of Present Illness History of Present Illness: CC: Chest pain HPI: 56 year old man admitted to [facility] for COPD exacerbation. He is reporting chest pain. Duration is 20 min, located in the left chest. Pain is sharp and pressure like in character, Pain started >10 days ago. Pain occurs in a random context without exertion. Review of Systems - Review of Systems All systems: reviewed and no additional remarkable complaints except Past Patient History - Infectious Disease Hx of Infectious Diseases: None - Past Medical History & Family History Past Medical History?: No Past Family History: Reviewed and not pertinent - Past Social History Smoking Status: Light Smoker < 10 Cigarettes Daily Chewing Tobacco Use: No Cigar Use: No Alcohol: None Drugs: Cocaine - CARDIAC Hx Cardiac Disorders: No - PULMONARY Hx Respiratory Disorders: No - NEUROLOGICAL Hx Neurological Disorder: No - HEENT Hx HEENT Problems: No - RENAL Hx Chronic Kidney Disease: No - ENDOCRINE/METABOLIC Hx Endocrine Disorders: No - HEMATOLOGICAL/ONCOLOGICAL Hx Blood Disorders: No - INTEGUMENTARY Hx Dermatological Problems: No - MUSCULOSKELETAL/RHEUMATOLOGICAL Hx Musculoskeletal Disorders: No Hx Falls: No - GASTROINTESTINAL Hx Gall Bladder Disease: Yes (GB SURGERY ) Hx Gastritis: Yes - GENITOURINARY/GYNECOLOGICAL Hx Genitourinary Disorders: No - PSYCHIATRIC Hx Psychophysiologic Disorder: No Hx Substance Use: No - SURGICAL HISTORY Hx Cholecystectomy: Yes - ANESTHESIA Hx Anesthesia: Yes Hx Anesthesia Reactions: No Meds Allergies/Adverse Reactions: Allergies Allergy/AdvReac Type Severity Reaction Status Date / Time No Known Allergies Allergy Verified 10/03/17 00:17 - Medications Medications: Current Medications Albuterol/Ipratropium (Duoneb 3 Mg/0.5 Mg (3 Ml) Ud) 3 ml INH RQ6 [facility] Last Admin: 10/06/17 07:32 Dose: 3 ml Aspirin (Aspirin) 325 mg PO DAILY [facility] Last Admin: 10/06/17 09:40 Dose: 325 mg Enoxaparin Sodium (Lovenox) 40 mg SC DAILY [facility] Last Admin: 10/06/17 09:40 Dose: 40 mg Ceftriaxone Sodium 1 gm/ (Sodium Chloride) 100 mls @ 100 mls/hr IVPB DAILY [facility] PRN Reason: Protocol Last Admin: 10/06/17 09:41 Dose: 100 mls/hr Azithromycin 500 mg/ Sodium (Chloride) 250 mls @ 250 mls/hr IVPB DAILY [facility] PRN Reason: Protocol Last Admin: 10/05/17 10:37 Dose: 250 mls/hr Pantoprazole Sodium (Protonix Ec Tab) 40 mg PO DAILY [facility] Last Admin: 10/06/17 09:40 Dose: 40 mg Physical Exam - Constitutional Appears: Well, Non-toxic - Head Exam Head Exam: ATRAUMATIC, NORMAL INSPECTION - Eye Exam Eye Exam: PERRL. absent: Scleral icterus - ENT Exam ENT Exam: Mucous Membranes Moist Additional comments: Poor dentition - Neck Exam Neck exam: Negative for: Lymphadenopathy, Thyromegaly - Respiratory Exam Respiratory Exam: Clear to Auscultation Bilateral, NORMAL BREATHING PATTERN - Cardiovascular Exam Cardiovascular Exam: REGULAR RHYTHM, RRR, +S1, +S2. absent: JVD - GI/Abdominal Exam GI & Abdominal Exam: Normal Bowel Sounds. absent: Organomegaly - Extremities Exam Extremities exam: Positive for: pedal pulses present. Negative for: calf tenderness, pedal edema - Neurological Exam Neurological exam: CN II-XII Intact, Oriented x3 - Psychiatric Exam Psychiatric exam: Normal Affect, Normal Mood Results - Vital Signs Recent Vital Signs: Last Vital Signs Temp 98.3 F 10/06/17 07:20 Pulse 57 L 10/06/17 07:57 Resp 18 10/06/17 07:20 BP 105/66 10/06/17 07:20 Pulse Ox 97 10/06/17 07:20 - Labs Result Diagrams: 10/06/17 06:21 10/06/17 06:21 Labs: Laboratory Results - last 24 hr 10/06/17 10/06/17 06:21 06:21 WBC 7.8 RBC 4.77 Hgb 14.9 Hct 43.1 MCV 90.2 MCH 31.2 H MCHC 34.6 RDW 13.8 Plt Count 174 MPV 8.6 Neut % (Auto) 62.7 Lymph % (Auto) 27.9 [place] % (Auto) 6.1 Eos % (Auto) 2.8 Baso % (Auto) 0.5 Neut # (Auto) 4.9 Lymph # (Auto) 2.2 [place] # (Auto) 0.5 Eos # (Auto) 0.2 Baso # (Auto) 0.0 Sodium 140 Potassium 3.9 Chloride 105 Carbon Dioxide 25 Anion Gap 14 BUN 13 Creatinine 1.1 Est GFR ( Amer) > 60 Est GFR (Non-Af Amer) > 60 Random Glucose 78 Calcium 8.5 L Total Bilirubin 0.4 AST 19 ALT 19 L Alkaline Phosphatase 65 Total Protein 6.3 Albumin 3.8 Globulin 2.6 Albumin/Globulin Ratio 1.5 - EKG Data EKG Interpreted by: Myself EKG shows normal: Sinus rhythm - Imaging and Cardiology CT scan - chest Additional comment: Intersitial lung disease Assessment & Plan - Assessment and Plan (Free Text) Assessment: 56 year old man with COPD exacerbation on abx and bronchodilators Chest pain serial trop is negative, EKG is negative for ischemia so unlikely to be NC Tobacco abuse discussed for 10 minutes regarding the ill effects of nicotine on vascular function appears to be precontemplative. If he is d/c home then he should follow up in my office in 1-2 weeks to reasses his symptoms.
[2017-10-06] MEDS: Azithromycin 500 MG in Sodium Chloride 0.9% 250 ML IVPB SCH (11:11)
--- NOTE | 2017-10-06 12:42 | CP.PCM.PN ---
Subjective - Date & Time of Evaluation Date of Evaluation: 10/06/17 Time of Evaluation: 12:39 - Subjective Subjective: PT ALERT, LESS COUGH., LESS SOB., LESS CP. ROS; OTHERWISE NEG. Objective - Vital Signs/Intake and Output Vital Signs (last 24 hours): Temp Pulse Resp BP Pulse Ox 98.3 F 57 L 18 105/66 97 10/06/17 07:20 10/06/17 07:57 10/06/17 07:20 10/06/17 07:20 10/06/17 07:20 - Medications Medications: Current Medications Albuterol/Ipratropium (Duoneb 3 Mg/0.5 Mg (3 Ml) Ud) 3 ml INH RQ6 [facility] Last Admin: 10/06/17 07:32 Dose: 3 ml Aspirin (Aspirin) 325 mg PO DAILY [facility] Last Admin: 10/06/17 09:40 Dose: 325 mg Enoxaparin Sodium (Lovenox) 40 mg SC DAILY [facility] Last Admin: 10/06/17 09:40 Dose: 40 mg Ceftriaxone Sodium 1 gm/ (Sodium Chloride) 100 mls @ 100 mls/hr IVPB DAILY [facility] PRN Reason: Protocol Last Admin: 10/06/17 09:41 Dose: 100 mls/hr Azithromycin 500 mg/ Sodium (Chloride) 250 mls @ 250 mls/hr IVPB DAILY [facility] PRN Reason: Protocol Last Admin: 10/06/17 11:11 Dose: 250 mls/hr Pantoprazole Sodium (Protonix Ec Tab) 40 mg PO DAILY [facility] Last Admin: 10/06/17 09:40 Dose: 40 mg - Labs Labs: 10/06/17 06:21 10/06/17 06:21 PT 11.9 SECONDS (9.7-12.2) 10/03/17 00:25 INR 1.1 10/03/17 00:25 APTT 33 SECONDS (21-34) 10/03/17 00:25 - Constitutional Appears: Non-toxic, No Acute Distress - Head Exam Head Exam: ATRAUMATIC, NORMOCEPHALIC - Eye Exam Eye Exam: EOMI, Normal appearance - ENT Exam ENT Exam: Mucous Membranes Moist - Neck Exam Neck Exam: Normal Inspection - Respiratory Exam Respiratory Exam: Decreased Breath Sounds. absent: Wheezes, Respiratory Distress - Cardiovascular Exam Cardiovascular Exam: RRR, +S1, +S2 - GI/Abdominal Exam GI & Abdominal Exam: Soft. absent: Tenderness - Rectal Exam Rectal Exam: Deferred - Extremities Exam Extremities Exam: absent: Calf Tenderness, Pedal Edema - Back Exam Back Exam: absent: CVA tenderness (L), CVA tenderness (R) - Neurological Exam Neurological Exam: Alert, Awake, CN II-XII Intact, Oriented x3 - Psychiatric Exam Psychiatric exam: Normal Mood - Skin Skin Exam: absent: Rash Assessment and Plan (1) Acute kidney injury Status: Acute (2) Smoking Status: Acute (3) Chest pain Status: Acute (4) Pneumonia Status: Acute - Assessment and Plan (Free Text) Assessment: RESP STATUS IMPROVING., CONT PULM TOILET., NEB BD. MONITOR O2 SAT. CXR REVIEWED. AFEBRILE ON AB. INCREASE OOB. DISCUSSED WITH STAFF AND PMD.
--- NOTE | 2017-10-06 13:58 | CARD ---
APPROVED REPORT Date of service: 10/03/2017 EKG Measurement Heart [id number] <Conclusion> Sinus bradycardia Otherwise normal ECG
--- NOTE | 2017-10-06 14:59 | CP.PCM.PN ---
Subjective - Date & Time of Evaluation Date of Evaluation: 10/06/17 Time of Evaluation: 07:00 - Subjective Subjective: PGY2- Progress Note for Dr. Braden Patient seen and examined at bedside. Patient says his chest pain has resolved. Patient denies any shortness of breath, headache, dizziness, changes in vision, syncopal episodes, or any other complaints. Objective - Vital Signs/Intake and Output Vital Signs (last 24 hours): Temp Pulse Resp BP Pulse Ox 98.3 F 57 L 18 105/66 97 10/06/17 07:20 10/06/17 07:57 10/06/17 07:20 10/06/17 07:20 10/06/17 07:20 - Medications Medications: Current Medications Albuterol/Ipratropium (Duoneb 3 Mg/0.5 Mg (3 Ml) Ud) 3 ml INH RQ6 [facility] Last Admin: 10/06/17 14:04 Dose: 3 ml Aspirin (Aspirin) 325 mg PO DAILY [facility] Last Admin: 10/06/17 09:40 Dose: 325 mg Enoxaparin Sodium (Lovenox) 40 mg SC DAILY [facility] Last Admin: 10/06/17 09:40 Dose: 40 mg Ceftriaxone Sodium 1 gm/ (Sodium Chloride) 100 mls @ 100 mls/hr IVPB DAILY [facility] PRN Reason: Protocol Last Admin: 10/06/17 09:41 Dose: 100 mls/hr Azithromycin 500 mg/ Sodium (Chloride) 250 mls @ 250 mls/hr IVPB DAILY [facility] PRN Reason: Protocol Last Admin: 10/06/17 11:11 Dose: 250 mls/hr Pantoprazole Sodium (Protonix Ec Tab) 40 mg PO DAILY [facility] Last Admin: 10/06/17 09:40 Dose: 40 mg - Labs Labs: 10/06/17 06:21 10/06/17 06:21 PT 11.9 SECONDS (9.7-12.2) 10/03/17 00:25 INR 1.1 10/03/17 00:25 APTT 33 SECONDS (21-34) 10/03/17 00:25 - Additional Findings Additional findings: - Head Exam Head Exam: ATRAUMATIC, NORMAL INSPECTION, NORMOCEPHALIC - Eye Exam Eye Exam: EOMI, Normal appearance, PERRL. absent: Periorbital tenderness Pupil Exam: NORMAL ACCOMODATION, PERRL - ENT Exam ENT Exam: Mucous Membranes Moist, Normal Oropharynx - Respiratory Exam Respiratory Exam: Clear to Ausculation Bilateral, NORMAL BREATHING PATTERN. absent: Prolonged Expiratory Phase, Respiratory Distress - Cardiovascular Exam Cardiovascular Exam: REGULAR RHYTHM, +S1, +S2 - GI/Abdominal Exam GI & Abdominal Exam: Soft, Normal Bowel Sounds. absent: Hyperactive Bowel Sounds - Extremities Exam Extremities Exam: Full ROM, Normal Inspection. absent: Pedal Edema - Back Exam Back Exam: NORMAL INSPECTION. absent: CVA tenderness (R), paraspinal tenderness - Neurological Exam Neurological Exam: Alert, Awake - Psychiatric Exam Psychiatric exam: Normal Affect, Normal Mood - Skin Skin Exam: Dry, Intact Assessment and Plan - Assessment and Plan (Free Text) Assessment: r/o ACS admit to tele Trop I .0440, .0830, .03 EKG: no ST or T wave changes UDS: negative cardiology consult, Dr. Vázquez, help appreciated heart healthy diet Echo: LVEF is 55%, no aortic regurg, mitral regurg is trace, no tricuspid valve regurg, no pulmonic valve regurg CTA: no evidence of PE. more limited eval for segmental and subsegmental emboli given motion artifact and suboptimal contrast timing bolus. Atelectasis and or infiltrate at the lung bases. Paraseptal emphysema. 3mm subpleural nodular density along the fissure. Clinical correlation. Three month interval followup may be helpful if clinically indicated. Meds: Aspirin 325mg PO Daily Pneumonia as seen on CT pulm consulted, Dr. Roberts, help appreciated :RESP STATUS NO SIG CHANGE. CONT EMPIRIC AB., CONT NEB BD., MONITOR O2 SAT. CT CHEST REVIEWED., CARDIO W/U IN PROGRESS. INCREASE : OOB. DISCUSSED WITH STAFF. WBC: 12.2 upon admission Blood cultures negative Meds: Azithromycin 500mg ivpb daily Ceftriaxone 1 gm ivpb daily Duonebs 3ml INH q6h Lung Nodule as seen on CT will need follow up CT as an outpatient pulm consulted, Dr. Roberts, help appreciated Prophylaxis Protonix 40mg po daily Lovenox 40mg sc daily, SCDs Discussed with Dr. Braden Patient stable for discharge as per Dr. Braden. Patient to take Augmentin twice a day for 7 days. Patient to see primary care doctor in 1 week. Patient to follow up with Dr. Yan (heart doctor) within 2 weeks. Patient to return to ER if symptoms return. Patient explained instructions who understands and agrees.
[2017-10-06 16:11] VITALS: BP 126/77; RESP 20; TEMP 97.7; O2SAT 98
[2017-10-06 17:20] VITALS: PULSE 65
--- NOTE | 2017-10-06 17:28 | CP.PCM.PN ---
Subjective - Date & Time of Evaluation Date of Evaluation: 10/06/17 Time of Evaluation: 10:40 - Subjective Subjective: clinically same Objective - Vital Signs/Intake and Output Vital Signs (last 24 hours): Temp Pulse Resp BP Pulse Ox 97.7 F 65 20 126/77 98 10/06/17 15:30 10/06/17 17:00 10/06/17 15:30 10/06/17 15:30 10/06/17 15:30 - Medications Medications: Current Medications Albuterol/Ipratropium (Duoneb 3 Mg/0.5 Mg (3 Ml) Ud) 3 ml INH RQ6 [facility] Last Admin: 10/06/17 14:04 Dose: 3 ml Aspirin (Aspirin) 325 mg PO DAILY [facility] Last Admin: 10/06/17 09:40 Dose: 325 mg Enoxaparin Sodium (Lovenox) 40 mg SC DAILY [facility] Last Admin: 10/06/17 09:40 Dose: 40 mg Ceftriaxone Sodium 1 gm/ (Sodium Chloride) 100 mls @ 100 mls/hr IVPB DAILY [facility] PRN Reason: Protocol Last Admin: 10/06/17 09:41 Dose: 100 mls/hr Azithromycin 500 mg/ Sodium (Chloride) 250 mls @ 250 mls/hr IVPB DAILY [facility] PRN Reason: Protocol Last Admin: 10/06/17 11:11 Dose: 250 mls/hr Pantoprazole Sodium (Protonix Ec Tab) 40 mg PO DAILY [facility] Last Admin: 10/06/17 09:40 Dose: 40 mg - Labs Labs: 10/06/17 06:21 10/06/17 06:21 PT 11.9 SECONDS (9.7-12.2) 10/03/17 00:25 INR 1.1 10/03/17 00:25 APTT 33 SECONDS (21-34) 10/03/17 00:25 - Constitutional Appears: Well - Head Exam Head Exam: ATRAUMATIC, NORMAL INSPECTION, NORMOCEPHALIC - Eye Exam Eye Exam: EOMI, Normal appearance, PERRL Pupil Exam: NORMAL ACCOMODATION, PERRL - ENT Exam ENT Exam: Mucous Membranes Moist, Normal Exam - Neck Exam Neck Exam: Full ROM, Normal Inspection. absent: Lymphadenopathy - Respiratory Exam Respiratory Exam: Decreased Breath Sounds - Cardiovascular Exam Cardiovascular Exam: REGULAR RHYTHM, +S1, +S2 - GI/Abdominal Exam GI & Abdominal Exam: Soft, Diminished Bowel Sounds - Rectal Exam Rectal Exam: Deferred
--- NOTE | 2017-10-07 19:37 | CARD ---
APPROVED REPORT Date of service: 10/03/2017 EKG Measurement Heart [id number] <Conclusion> Sinus tachycardia Possible Left atrial enlargement Borderline ECG
== END 2017-10-06 18:53 | disposition home or self-care (01) | DRG 541 ==
LOC: C.ER 00:02 → C.6T 03:24
PROVIDERS: ADMIT Internal Medicine Nephrology; ATTEND Internal Medicine Nephrology
DX: J18.9 Pneumonia, unspecified organism (principal); N17.9 Acute kidney failure, unspecified; J44.0 Chronic obstructive pulmonary disease with (acute) lower respiratory infection; J98.11 Atelectasis; F17.210 Nicotine dependence, cigarettes, uncomplicated; Z59.0 Homelessness; Z79.82 Long term (current) use of aspirin